=== PATIENT | male | born 1940 | race Caucasian/White ===

== ENCOUNTER 2020-04-14 12:27 | Emergency (ER) | payer OTHER, MEDICARE, SELFPAY ==
[2020-04-14 12:28] VITALS: BP 190/81; PULSE 59; RESP 20; TEMP 36.9; O2SAT 96; BMI 24.9
--- NOTE | 2020-04-14 12:42 | XR_ITS ---
WS: [id number] PORTABLE CHEST HISTORY: weakness COMPARISON: 02/22/2018 Status post CABG. Volume loss bilaterally with increased interstitial thickening which has progressed since 02/22/2018. Slight elevation LEFT hemidiaphragm is stable. Blunting of the RIGHT costophrenic angle. Cardiac size: Normal. Mediastinum/Aorta: Mild atherosclerosis aorta. No osseous abnormality seen. XR/XR chest 1V portable [id number] IMPRESSION: 1. Interstitial thickening appears chronic and related to pulmonary fibrosis. 2. Small RIGHT pleural effusion versus pleural thickening.
--- NOTE | 2020-04-14 13:08 | W.ED.RECABL ---
HPI - Recheck/Abnormal Lab/Rx General: Chief Complaint: Recheck/Abnormal Lab/Rx Stated Complaint: abnormal labs/sent by dr contreras Time Seen by Provider: 04/14/20 12:35 Source: patient Mode of arrival: ambulatory Limitations: no limitations History of Present Illness: HPI narrative: Mr. Pérez is a nice 79-year-old male who comes in complaining of abnormal labs. He states he was sent by the [facility] to be checked out for labs that were drawn last week and found to be abnormal. Patient denies any change in his overall health status although he states he is not felt wonderful for a time but denies any specific focal new complaints today. Patient states he is had some leg swelling and he has been told he has some abnormal liver enzymes but otherwise he is unaware of any other ongoing medical problems. He states he is in the process of transferring to Dr. Contreras's office from the [facility]. Review of Systems Const: Denies: fever(s), chills, body aches, fatigue, malaise or diaphoresis Eyes: Denies: change in vision, blurry vision, blind spots or photophobia ENMT: Denies: throat pain, odynophagia, hoarseness, swelling of lips/tongue, ear or mastoid pain, ear discharge, change in hearing or nasal discharge Card: Denies: chest pain, palpitations, irregular heart rhythm, edema, lightheadedness, syncope, pre-syncope, dyspnea on exertion or orthopnea Resp: Denies: dyspnea, productive cough, non-productive cough, wheezing, hemoptysis or chest congestion GI: Denies: abdominal pain, nausea, vomiting, hematemesis, coffee ground emesis, heartburn, diarrhea, constipation, GI cramping, hematochezia or melena : Denies: flank pain, dysuria, urinary frequency, urinary urgency or hematuria Musc: Reports: extremity swelling; Denies: neck pain, back pain, extremity pain, joint pain, joint swelling, joint redness, joint warmth or joint stiffness Skin/Breast: Denies: rash, pruritus, erythema, skin tenderness or jaundice Neuro: Denies: headache(s), numbness in extremities, weakness in extremities, sensory changes, lack of coordination, difficulty walking, dizziness, vertigo, confusion or Slurred speech present Francois/Lymph: Denies: easy bruising, easy bleeding, petechiae, purpura or enlarged lymph nodes All/Imm: Denies: urticaria, throat swelling, tongue swelling, facial swelling or acute wheezing PFSH ED PFSH: Medical History CAD (coronary atherosclerotic disease) Diabetes Hypertension Surgical History H/O cardiac catheterization H/O heart artery stent Hx of CABG Social History Smoking and tobacco status: never smoked Physical Exam Const: COMMON NORMALS: no acute distress, patient oriented x3, no limitations, healthy appearing and well nourished GENERAL APPEARANCE: cooperative, well kempt and well developed HENMT: COMMON NORMALS: normocephalic, atraumatic, external ears normal, EAC's normal and Normal external nose present HEAD & SCALP: normal to inspection, normocephalic and atraumatic FACE & SINUS: normal facial exam and face symmetric NOSE: Normal external nose present and Normal nares present EXTERNAL EAR: Yes external ears normal EXTERNAL AUDITORY CANAL: EAC's normal MOUTH: Normal oral and palatal mucosa present, lip normal and tongue normal Eye: COMMON NORMALS: Equal, round and reactive pupils present and conjunctivae normal GENERAL EYE: appearance normal, both eyes and all related structures ALIGNMENT: Yes alignment normal PERIORBITAL: periorbital findings normal EYELID: eyelids normal CONJUNCTIVA: Yes conjunctivae normal SCLERA: sclerae normal PUPIL: Yes Equal, round and reactive pupils present Neck/C-Spine: COMMON NORMALS: full ROM, no lymphadenopathy, supple, no meningeal signs and no JVD GENERAL: Yes normal visual inspection and Yes trachea midline Chest: COMMONS NORMALS: normal inspection of the chest and normal palpation of entire chest wall Resp: COMMON NORMALS: normal respiratory effort, No retractions and No use of accessory muscles EFFORT & INSPECTION: Yes able to speak in complete sentences and Yes symmetric chest movement AUSCULTATION: no crackles, no rales, no rhonchi and no wheezes Cardio: COMMON NORMALS: no JVD, regular rate, regular rhythm, S1 normal heart sound present and S2 normal heart sound present RATE: regular rate RHYTHM: regular rhythm HEART SOUNDS: S1 normal heart sound present, S2 normal heart sound present, no click, no gallops, no murmurs, no rubs and abnormal split S2 GI: COMMON NORMALS: Soft to palpation and No hepatosplenomegaly present PALPATION: Yes Soft to palpation, No Tenderness to palpation present (GI), No Guarding due to palpation present (GI), No Rigid due to palpation, Yes No hepatosplenomegaly present, No Hernia present, No Palpable mass present and No Pulsatile mass present : COMMON NORMALS: Yes no CVA tenderness BLADDER/KIDNEY EXAM: Yes no CVA tenderness Back/Pelvis: COMMON NORMALS: no CVA tenderness, thoracic and lumbar spine normal to inspection, no thoracic nor lumbar tenderness and thoraco-lumbar ROM normal Extremity: COMMON NORMALS: normal to inspection, full ROM, capillary refill normal, no joint enlargement and no calf tenderness NARRATIVE EXTREMITY EXAM: Bilateral mild leg edema Neuro: COMMON NORMALS: patient oriented x3, CN's II-XII intact bilaterally, moves all extremities, no focal motor deficits and no sensory deficits noted MENINGEAL SIGNS: Yes no meningeal signs SPEECH: speech normal Psych: COMMON NORMALS: mental status grossly normal, Normal thought process present, cooperative, normal affect, speech normal and activity/motor behavior normal APPEARANCE: Yes well kempt SPEECH: Yes normal speech THOUGHT PROCESS: Normal thought process present Skin: COMMON NORMALS: no rashes or lesions noted, turgor normal, no jaundice, no petechiae and no mottling GENERAL SKIN EXAM: no rashes or lesions noted and turgor normal Course Vital Signs: Vital signs: Vital Signs Temperature 98.5 F 04/14/20 12:28 Pulse Rate 57 L 04/14/20 14:40 Respiratory Rate 22 H 04/14/20 14:40 Blood Pressure 162/69 04/14/20 14:40 Pulse Oximetry 99 04/14/20 14:40 MDM - Recheck/Abnormal Lab/Rx MDM Narrative: Medical decision making narrative: Ricky is a very nice 79-year-old male who comes in with a complaint of elevated liver enzymes. [facility] with [facility] that the patient was referred here for elevated liver enzymes. The patient has an appointment set up with Dr. Contreras on for this. The only thing I see of mild concern today is the swelling of his legs. It appears as though he has some early congestive heart failure and worsening renal insufficiency. The patient denies any chest pain or shortness of breath. I will give him a dose of Lasix here and a dose of Lasix to take at home tomorrow. I did review the case with Dr. Contreras who is happy to see the patient on for recheck of all of these issues. The patient understands he will need further work-up and evaluation and will follow-up for this but if there is any problems he knows he can return here for recheck. The patient's cardiac enzymes are slightly elevated but I believe this is secondary to renal insufficiency and heart failure. He adamantly denies any chest pain and does not want to wait for a second troponin test. He seems frustrated that he is bouncing around amongst somebody providers and at this time she is adamant that he wants to follow-up with Dr. Contreras. Lab Data: Attestation: I reviewed the patient's lab results. Labs: Lab Results 04/14/20 04/14/20 04/14/20 Range/Units 13:13 13:13 13:13 WBC 13.1 H (4.0-10.0) 10^3/ uL RBC 3.99 L (4.1-5.3) 10^6/u L Hgb 12.2 (11.7-16.6) g/dL Hct 37.9 L (42.0-52.0) % MCV 95.0 H (80-94) fL MCH 30.6 (28.0-34.0) pg MCHC 32.2 (30.0-36.0) g/dL RDW 13.2 (12.1-15.1) % Plt Count 213 (130-400) 10^3/c mm MPV 11.3 H (7.4-10.4) fL Neut % (Auto) 62.6 % Lymph % (Auto) 11.1 % [place] % (Auto) 11.0 % Eos % (Auto) 13.9 % Baso % (Auto) 0.9 % Neut # (Auto) 8.2 H (1.8-7.7) 10^3/u L Lymph # (Auto) 1.5 (0.8-4.8) 10^3/u L [place] # (Auto) 1.4 H (0.2-0.9) 10^3/u L Eos # (Auto) 1.8 H (0.0-0.8) 10^3/u L Baso # (Auto) 0.1 (0.0-0.1) 10^3/u L Nucleated RBC % (a uto) 0 % Nucleated RBCs # 0.0 /100WBC PT 13.40 H (10.5-13.3) SECO NDS INR 0.99 (0.8-1.2) APTT 33.2 (23.9-36.7) SECO NDS Sodium 143 (136-145) mmol/L Potassium 4.2 (3.5-5.1) mmol/L Chloride 101 (98-107) mmol/L Carbon Dioxide 29 (22-29) mmol/L Anion Gap 17.2 (5-19) BUN 21 (8-23) mg/dL Creatinine 1.7 H (0.7-1.2) mg/dL Glucose 145 H (65-115) mg/dL Calculated Osmolal ity 295 (285-295) mOsm/k g Calcium 9.3 (8.5-10.5) mg/dL Magnesium 2.0 (1.7-2.3) mg/dL Total Bilirubin 0.6 (0.15-1.2) mg/dL AST 63 H (0-40) U/L ALT 81 H (0-41) U/L Alkaline Phosphata se 264 H (40-130) IU/L Ammonia (16-60) umol/L Creatine Kinase 69 (39-308) U/L Troponin T Baselin e (0-15) ng/L NT-Pro-B Natriuret Pep 1952 H (0-450) pg/mL Total Protein 6.3 L (6.6-8.7) g/dL Albumin 3.4 L (3.5-5.2) g/dL Globulin 2.9 (1.3-4.6) g/dL Lipase 16 (13-60) U/L TSH 6.66 H (0.27-4.20) uIU/ mL Urine Color (Yellow) Urine Appearance (CLEAR) Urine pH (5-7) Ur Specific Gravit y (1.005-1.030) Urine Protein (Negative) Urine Glucose (UA) (Normal) Urine Ketones (Negative) Urine Blood (Negative) Urine Nitrate (Negative) Urine Bilirubin (NEGATIVE) Urine Urobilinogen (Negative) mg/dL Ur Leukocyte Karine ase (Negative) Urine RBC (0-2) /hpf Urine WBC (0-5) /hpf Ur Squamous Epith Cells (0-5) Urine Bacteria (NONE) 04/14/20 04/14/20 04/14/20 Range/Units 13:13 13:13 13:25 WBC (4.0-10.0) 10^3/ uL RBC (4.1-5.3) 10^6/u L Hgb (11.7-16.6) g/dL Hct (42.0-52.0) % MCV (80-94) fL MCH (28.0-34.0) pg MCHC (30.0-36.0) g/dL RDW (12.1-15.1) % Plt Count (130-400) 10^3/c mm MPV (7.4-10.4) fL Neut % (Auto) % Lymph % (Auto) % [place] % (Auto) % Eos % (Auto) % Baso % (Auto) % Neut # (Auto) (1.8-7.7) 10^3/u L Lymph # (Auto) (0.8-4.8) 10^3/u L [place] # (Auto) (0.2-0.9) 10^3/u L Eos # (Auto) (0.0-0.8) 10^3/u L Baso # (Auto) (0.0-0.1) 10^3/u L Nucleated RBC % (a uto) % Nucleated RBCs # /100WBC PT (10.5-13.3) SECO NDS INR (0.8-1.2) APTT (23.9-36.7) SECO NDS Sodium (136-145) mmol/L Potassium (3.5-5.1) mmol/L Chloride (98-107) mmol/L Carbon Dioxide (22-29) mmol/L Anion Gap (5-19) BUN (8-23) mg/dL Creatinine (0.7-1.2) mg/dL Glucose (65-115) mg/dL Calculated Osmolal ity (285-295) mOsm/k g Calcium (8.5-10.5) mg/dL Magnesium (1.7-2.3) mg/dL Total Bilirubin (0.15-1.2) mg/dL AST (0-40) U/L ALT (0-41) U/L Alkaline Phosphata se (40-130) IU/L Ammonia 24 (16-60) umol/L Creatine Kinase (39-308) U/L Troponin T Baselin e 27 H (0-15) ng/L NT-Pro-B Natriuret Pep (0-450) pg/mL Total Protein (6.6-8.7) g/dL Albumin (3.5-5.2) g/dL Globulin (1.3-4.6) g/dL Lipase (13-60) U/L TSH (0.27-4.20) uIU/ mL Urine Color Yellow (Yellow) Urine Appearance Clear (CLEAR) Urine pH 5 (5-7) Ur Specific Gravit y 1.015 (1.005-1.030) Urine Protein Trace (Negative) Urine Glucose (UA) Norm (Normal) Urine Ketones Negative (Negative) Urine Blood Neg (Negative) Urine Nitrate Negative (Negative) Urine Bilirubin Neg (NEGATIVE) Urine Urobilinogen Norm (Negative) mg/dL Ur Leukocyte Karine ase Negative (Negative) Urine RBC None (0-2) /hpf Urine WBC None (0-5) /hpf Ur Squamous Epith Cells None (0-5) Urine Bacteria Trace (NONE) Imaging Data^: CXR: Radiologist's impression: [address] [address] XRay Report Signed Patient: Ricky Pérez Unit #: [id number] : 1940 Age/Sex: 79 / M ADM Date: 04/14/20 Loc: ER Room/Bed: Attending Dr: Ordering Provider/Ordering MD: Marnie Garvey DO Date of Service: 04/14/20 Procedure(s): XR chest 1V portable [id number] Accession Number(s): [id number] Report Number: [id number] WS: [id number] PORTABLE CHEST HISTORY: weakness COMPARISON: 02/22/2018 Status post CABG. Volume loss bilaterally with increased interstitial thickening which has progressed since 02/22/2018. Slight elevation LEFT hemidiaphragm is stable. Blunting of the RIGHT costophrenic angle. Cardiac size: Normal. Mediastinum/Aorta: Mild atherosclerosis aorta. No osseous abnormality seen. XR/XR chest 1V portable [id number] IMPRESSION: 1. Interstitial thickening appears chronic and related to pulmonary fibrosis. 2. Small RIGHT pleural effusion versus pleural thickening. Dictated By: Sarah Kohler DO Signed By: Sarah Kohler DO Signed Date/Time: 04/14/20 1319 DD/ 1305 EKG Data^: EKG 1: Attestation: I personally reviewed and interpreted this EKG as follows: EKG interpretation date: 04/14/20 EKG interpretation time: 13:03 Interpretation: Sinus bradycardia 57 beats a minute, normal intervals, left axis deviation, incomplete right bundle branch block, no acute ST or T wave findings. Discharge Plan Discharge Patient Disposition: Home, Self-Care Clinical Impression: Elevated liver enzymes Congestive heart failure Qualifiers: Heart failure type: unspecified Heart failure chronicity: acute Qualified Code(s): I50.9 - Heart failure, unspecified Condition: Stable Prescriptions: New Lasix 40 mg tablet 40 mg PO QAM Qty: 1 RF: 0 Discharge Orders: Discharge Order (Routine); Ordered 04/14/20 Ordered By: Marnie Garvey Referrals: Roberth Contreras MD [Physician] - 04/17/20 9:30 am (Follow-up as scheduled.) Discharge Diet: Low Salt Discharge Activity: Increase activity as tolerated Patient Instructions: Congestive Heart Failure, Heart Failure (ED), Leg Edema (ED) Activity Restrictions/Additional Instructions: Please return to the ER immediately for any of the signs or symptoms listed on your discharge instruction sheets, worsening/changing of your symptoms, you are not getting better as quickly as expected, or for ANY other cause or concerns. You have declined any further evaluation and care here for your heart. Of course any heart problem can be life-threatening so if you change your mind, you develop chest pain, develop shortness of breath, or you have any other concerns please return to the ER immediately for recheck. Be certain to make your follow-up appointments with Dr. Contreras this week and with the [facility] as [facility]. Discharge Date/Time: 04/14/20 14:41 Coding Level of Care Code ED Shingle Sawyer for Chg Fwd Exam Comprehensive
[2020-04-14 13:20] LABS: Basophils # 0.1 10^3/uL (0.0-0.1); Basophils % 0.9 %; Eosinophils # 1.8 10^3/uL (0.0-0.8); Eosinophils % 13.9 %; Hematocrit 37.9 % (42.0-52.0); Hemoglobin 12.2 g/dL (11.7-16.6); Lymphocytes # 1.5 10^3/uL (0.8-4.8); Lymphocytes % 11.1 %; Mean Corpuscular HGB Conc 32.2 g/dL (30.0-36.0); Mean Corpuscular Hemoglobin 30.6 pg (28.0-34.0); Mean Platelet Volume 11.3 fL (7.4-10.4); Monocytes # 1.4 10^3/uL (0.2-0.9); Neutrophils # 8.2 10^3/uL (1.8-7.7); Neutrophils % 62.6 %; Nucleated Red Blood Cells % 0 %; Platelet Count 213 10^3/cmm (130-400); Red Blood Count 3.99 10^6/uL (4.1-5.3); Red Cell Distribution Width 13.2 % (12.1-15.1); White Blood Count 13.1 10^3/uL (4.0-10.0)
[2020-04-14 13:33] LABS: INR 0.99 (0.8-1.2)
[2020-04-14 13:34] LABS: Partial Thromboplastin Time 33.2 SECONDS (23.9-36.7)
[2020-04-14 13:43] LABS: Troponin(5th) Baseline 27 ng/L (0-15)
[2020-04-14 13:45] LABS: Ammonia 24 umol/L (16-60)
[2020-04-14 13:48] LABS: Alanine Aminotransferase 81 U/L (0-41); Albumin Level 3.4 g/dL (3.5-5.2); Alkaline Phosphatase 264 IU/L (40-130); Anion Gap 17.2 (5-19); Aspartate Amino Transferase 63 U/L (0-40); Blood Urea Nitrogen 21 mg/dL (8-23); Calcium 9.3 mg/dL (8.5-10.5); Carbon Dioxide 29 mmol/L (22-29); Chloride 101 mmol/L (98-107); Creatine Phosphokinase 69 U/L (39-308); Globulin 2.9 g/dL (1.3-4.6); Glucose 145 mg/dL (65-115); Lipase 16 U/L (13-60); NT Pro B Type Natriuretic Pept 1952 pg/mL (0-450); Osmolality Calculated 295 mOsm/kg (285-295); Potassium 4.2 mmol/L (3.5-5.1); Sodium 143 mmol/L (136-145); Thyroid Stimulating Hormone 6.66 uIU/mL (0.27-4.20); Total Bilirubin 0.6 mg/dL (0.15-1.2); Total Protein 6.3 g/dL (6.6-8.7)
--- NOTE | 2020-04-14 14:07 | DCPLANNER ---
biofuels product manager was asked to schedule a follow up appointment for patient with Dr. Contreras. biofuels product manager called the office of , spoke with Consuelo, a follow up appointment was scheduled for patient for , April 17, 2020 at 9:[address] Contreras. biofuels product manager called [facility], gave her the appointment information for her to put in for the [facility] team. biofuels product manager was told that patient will need to call the [facility] about seeing [facility] Contreras. biofuels product manager informed patient of this, and told patient that he would need to call the [facility] about his appointment scheduled for this week.
[2020-04-14 14:13] LABS: Bilirubin Urine Neg (NEGATIVE); Blood Urine Neg (Negative); Glucose Urine UA Norm (Normal); Ketones Urine Negative (Negative); Leukocyte Esterase Urine Negative (Negative); Nitrate Urine Negative (Negative); Protein Urine Trace (Negative); Specific Gravity, Urine 1.015 (1.005-1.030); Urine Appearance Clear (CLEAR); Urine Color Yellow (Yellow); Urobilinogen Urine Norm (Negative); pH Urine 5 (5-7)
[2020-04-14 14:24] LABS: Add Urine Culture? No; Bacteria Urine TRACE
[2020-04-14] MEDS: FUROsemide 10 mg/mL SDV 4mL 40 MG IVP (14:32)
[2020-04-14 14:40] VITALS: BP 162/69; PULSE 57; RESP 22; O2SAT 99
--- NOTE | 2020-04-14 18:43 | ECG_ITS ---
Measurements Intervals [place] Rate: 57 P: 39 MT: 142 QRS: -17 QRSD: 89 T: 30 QT: 429 QTc: 419 SINUS BRADYCARDIA WITH SINUS ARRHYTHMIA POSSIBLE RIGHT VENTRICULAR CONDUCTION DELAY [RSR (QR) IN V1/V2] MINIMAL ST DEPRESSION [0.025+ mV ST DEPRESSION] No previous ECG available for comparison Electronically Signed On 04-14-2020 19:31:37 CDT by Junior Rodriguez M.D. [id number]
--- NOTE | 2020-04-24 15:26 | DCPLANNER ---
Patient did attend appointment scheduled for 04.17.[address] Contreras.
== END 2020-04-14 14:41 | disposition home or self-care (01) ==
PROVIDERS: Emergency Provider Emergency Medicine
DX: R74.8 Abnormal levels of other serum enzymes (principal); I11.0 Hypertensive heart disease with heart failure; I50.9 Heart failure, unspecified; I25.10 Atherosclerotic heart disease of native coronary artery without angina pectoris; E11.9 Type 2 diabetes mellitus without complications; Z95.1 Presence of aortocoronary bypass graft
CPT/HCPCS: 12345; 36415; 71045; 80053; 81001; 82140; 82550; 83690; 83735; 83880; 84443; 84484; 85025; 85610; 85730; 93005; 96374; 99283; 99284; J1940

== ENCOUNTER → 2020-05-01 11:42 | Outpatient (BNVA) | payer MEDICARE, OTHER, SELFPAY | PROVIDERS: Visit Provider Internal Medicine | DX: E87.6 Hypokalemia (principal); I50.9 Heart failure, unspecified; I25.10 Atherosclerotic heart disease of native coronary artery without angina pectoris; I10 Essential (primary) hypertension; E11.9 Type 2 diabetes mellitus without complications | CPT/HCPCS: 80048 ==

== ENCOUNTER 2020-05-14 12:38 | Inpatient (IN) | payer OTHER, MEDICARE, SELFPAY ==
[2020-05-14] VITALS (7 sets, daily range): BP systolic 111–123; BP diastolic 46–68; PULSE 65–74; RESP 15–18; TEMP 36.3–36.6; O2SAT 94–98; BMI 24.3
--- NOTE | 2020-05-14 12:43 | ECG_ITS ---
[facility] Test Date: 2020-05-14 Pat Name: Ricky Pérez Department: Room: Gender: Male Wholesale Buyer: : 1940 Requested By: Lazaro Nicholson Order Number: [id number] Maddison MD: Nidhi Blake M.D. Measurements Intervals [place] Rate: 72 P: 27 WV: 133 QRS: -11 QRSD: 88 T: 33 QT: 392 QTc: 430 Interpretive Statements SINUS RHYTHM POSSIBLE RIGHT VENTRICULAR CONDUCTION DELAY [RSR (QR) IN V1/V2] Compared to ECG 04/14/2020 13:03:28 Sinus bradycardia no longer present Sinus arrhythmia no longer present ST (T wave) deviation no longer present Electronically Signed On 05-15-2020 17:08:45 CDT by Nidhi Blake M.D. [email or web address]/store/[id number]
--- NOTE | 2020-05-14 12:51 | ED_ITS ---
HPI - General Adult General: Chief complaint: General Medical Stated complaint: flluid build up Time Seen by Provider: 05/14/20 12:51 History of Present Illness: HPI narrative: 79-year-old male [facility] ED PFSH: Medical History (Updated 05/12/20 @ 14:33 by Roberth Contreras MD) CAD (coronary atherosclerotic disease) Diabetes Hypertension Surgical History H/O cardiac catheterization H/O heart artery stent Hx of CABG Social History Smoking and tobacco status: former smoker Alcohol intake: former History of recent travel: No Course Vital Signs: Vital signs: Vital Signs Temperature 97.4 F L 05/14/20 12:46 Pulse Rate 74 05/14/20 12:46 Respiratory Rate 18 05/14/20 12:46 Blood Pressure 123/60 05/14/20 12:46 Pulse Oximetry 95 05/14/20 12:46 Discharge Plan Discharge Prescriptions: No Action aspirin 81 mg tablet,delayed release (DR/EC) 81 mg PO DAILY RF: 0 levothyroxine 75 mcg capsule 75 mcg PO DAILY RF: 0 atorvastatin 80 mg tablet 80 mg PO DAILY RF: 0 insulin aspart U-100 [Novolog U-100 Insulin aspart] 100 unit/mL solution 75 unit SUBCUT DAILY RF: 0 metoprolol tartrate 25 mg tablet 37.5 mg PO BID RF: 0 nitroglycerin [Nitrostat] 0.4 mg tablet, sublingual 0.4 mg SUBLINGUAL Q5M PRNRF: 0 montelukast 10 mg tablet 10 mg PO DAILY RF: 0 hydroxyzine HCl 50 mg tablet 50 mg PO TID RF: 0 furosemide 20 mg tablet 60 mg PO BID 30 Days Qty: 180 RF: 8 Coding Level of Care Code ED Airplane Patroller for Justo Meyer
[2020-05-14 13:23] LABS: Basophils # 0.1 10^3/uL (0.0-0.1); Basophils % 0.6 %; Hematocrit 39.3 % (42.0-52.0); Hemoglobin 12.5 g/dL (11.7-16.6); Lymphocytes # 3.6 10^3/uL (0.8-4.8); Lymphocytes % 19.5 %; Mean Corpuscular HGB Conc 31.8 g/dL (30.0-36.0); Mean Corpuscular Hemoglobin 31.3 pg (28.0-34.0); Mean Corpuscular Volume 98.5 fL (80-94); Monocytes # 3.8 10^3/uL (0.2-0.9); Monocytes % 20.5 %; Neutrophils # 8.79 10^3/uL (1.8-7.7); Neutrophils % 47.4 %; Nucleated Red Blood Cells % 0 %; Platelet Count 274 10^3/cmm (130-400); Red Blood Count 3.99 10^6/uL (4.1-5.3); Red Cell Distribution Width 15.4 % (12.1-15.1); White Blood Count 18.5 10^3/uL (4.0-10.0)
--- NOTE | 2020-05-14 13:26 | XRR_ITS ---
PROCEDURE INFORMATION: Exam: XR Chest, 1 View Exam date and time: 05/14/2020 2:01 PM Age: 79 years old Clinical indication: Shortness of breath; Additional info: SOB TECHNIQUE: Imaging protocol: XR of the chest Views: 1 view. COMPARISON: CR XR chest 1V portable [id number] 04/14/2020 1:01 PM FINDINGS: Lungs: Atelectasis is seen in the left lower lobe Pleural space: Elevation of the left hemidiaphragm. No pleural effusion. No pneumothorax. Heart/Mediastinum: Unremarkable. No cardiomegaly. Bones/joints: Metallic sternotomy wires are in place. XR/XR chest 1V portable [id number] IMPRESSION: No acute findings. Left lower lobe atelectasis Elevation left hemidiaphragm Status post sternotomy
--- NOTE | 2020-05-14 13:36 | W.ED.GENADLT ---
HPI - General Adult General: Chief complaint: General Medical Stated complaint: flluid build up Time Seen by Provider: 05/14/20 12:51 Source: patient Mode of arrival: ambulatory Limitations: no limitations History of Present Illness: HPI narrative: 79-year-old male who has a history of congestive heart failure states that he has been having generalized weakness along with shortness of breath over the last 2 months. Patient states that he gets short of breath with ambulating. He denies any pain. Onset (ago): week(s) Associated symptoms: Reports dyspnea; Deny chest pain, nausea, rash or vomiting Review of Systems Const: Denies: fever(s), chills, body aches or change in appetite Eyes: Denies: blurry vision or eye discomfort ENMT: Denies: throat pain or dental pain Card: Denies: chest pain Resp: Reports: dyspnea GI: Denies: abdominal pain, nausea, vomiting or diarrhea : Denies: dysuria Musc: Denies: neck pain or back pain Skin/Breast: Denies: rash Neuro: Reports: weakness in extremities Psych: Denies: depression Francois/Lymph: Denies: easy bruising All/Imm: Denies: urticaria PFSH ED PFSH: Medical History (Updated 05/14/20 @ 14:54 by Rodolfo Whittington MD) CAD (coronary atherosclerotic disease) Diabetes Hypertension Surgical History H/O cardiac catheterization H/O heart artery stent Hx of CABG Social History Smoking and tobacco status: former smoker Alcohol intake: former History of recent travel: No Physical Exam Const: COMMON NORMALS: no acute distress, patient oriented x3 and healthy appearing HENMT: COMMON NORMALS: normocephalic and atraumatic HEAD & SCALP: normocephalic and atraumatic Eye: COMMON NORMALS: Equal, round and reactive pupils present and EOMs intact bilaterally PUPIL: Yes Equal, round and reactive pupils present Neck/C-Spine: COMMON NORMALS: full ROM and supple Chest: COMMONS NORMALS: normal inspection of the chest and normal palpation of entire chest wall Resp: COMMON NORMALS: normal respiratory effort, No retractions, No use of accessory muscles and clear to auscultation bilaterally AUSCULTATION: clear to auscultation bilaterally Cardio: COMMON NORMALS: regular rate, regular rhythm and No murmurs present (Cardio) RATE: regular rate RHYTHM: regular rhythm GI: COMMON NORMALS: Normal to inspection, nondistended, normoactive bowel sounds present, Soft to palpation, non-tender and no masses PALPATION: Yes Soft to palpation Extremity: COMMON NORMALS: normal to inspection and full ROM Neuro: COMMON NORMALS: patient oriented x3, moves all extremities and no focal motor deficits Psych: COMMON NORMALS: mental status grossly normal, Normal thought process present and cooperative THOUGHT PROCESS: Normal thought process present Skin: COMMON NORMALS: no rashes or lesions noted and no wounds GENERAL SKIN EXAM: no rashes or lesions noted Course Vital Signs: Vital signs: Vital Signs Temperature 97.4 F L 05/14/20 12:46 Pulse Rate 74 05/14/20 12:46 Respiratory Rate 18 05/14/20 12:46 Blood Pressure 123/60 05/14/20 12:46 Pulse Oximetry 95 05/14/20 12:46 MDM - General Adult MDM Narrative: Medical decision making narrative: Patient presents here with acute kidney injury with an elevated creatinine today of 6.2. Patient's potassium level is normal. Patient also has a history of congestive heart failure. His PCP recently stopped his Lasix. Patient's been having weakness as well. I spoke to hospitalist and will admit. Lab Data: Labs: Lab Results 05/14/20 05/14/20 Range/Units 13:15 13:15 Sodium 139 (136-145) mmol/L Potassium 5.3 H (3.5-5.1) mmol/L Chloride 101 (98-107) mmol/L Carbon Dioxide 26 (22-29) mmol/L Anion Gap 17.3 (5-19) BUN 80 H (8-23) mg/dL Creatinine 6.3 H* (0.7-1.2) mg/dL Glucose 128 H (65-115) mg/dL Calculated Osmolal ity 290 (285-295) mOsm/k g Calcium 9.7 (8.5-10.5) mg/dL Total Bilirubin 0.4 (0.15-1.2) mg/dL AST 37 (0-40) U/L ALT 33 (0-41) U/L Alkaline Phosphata se 214 H (40-130) IU/L Troponin T Baselin e 43 H (0-15) ng/L NT-Pro-B Natriuret Pep 2598 H (0-450) pg/mL Total Protein 6.3 L (6.6-8.7) g/dL Albumin 3.5 (3.5-5.2) g/dL Globulin 2.8 (1.3-4.6) g/dL EKG Data^: EKG 1: Attestation: I personally reviewed and interpreted this EKG as follows: EKG interpretation date: 05/14/20 EKG interpretation time: 13:32 Interpretation: nsr hr [address] or t wave abnormalities qrs 88 qtc 416 Computer generated interpretation: Chest X-Ray 05/14/20 13:26 IMPRESSION: No acute findings. Left lower lobe atelectasis Elevation left hemidiaphragm Status post sternotomy Discharge Plan Discharge Patient Disposition: Admitted As Inpatient Clinical Impression: CHF (congestive heart failure), Acute kidney injury Condition: Stable Coding Level of Care Code ED Activity Coordinator for Chg Fwd Exam Comprehensive
--- NOTE | 2020-05-14 13:37 | PC.NURSE ---
EKG done at 1325 and shown to ER doctor
[2020-05-14 13:51] LABS: Troponin(5th) Baseline 43 ng/L (0-15)
[2020-05-14 13:55] LABS: Alanine Aminotransferase 33 U/L (0-41); Albumin Level 3.5 g/dL (3.5-5.2); Alkaline Phosphatase 214 IU/L (40-130); Anion Gap 17.3 (5-19); Aspartate Amino Transferase 37 U/L (0-40); Blood Urea Nitrogen 80 mg/dL (8-23); Calcium 9.7 mg/dL (8.5-10.5); Carbon Dioxide 26 mmol/L (22-29); Chloride 101 mmol/L (98-107); Globulin 2.8 g/dL (1.3-4.6); Glucose 128 mg/dL (65-115); NT Pro B Type Natriuretic Pept 2598 pg/mL (0-450); Osmolality Calculated 290 mOsm/kg (285-295); Potassium 5.3 mmol/L (3.5-5.1); Sodium 139 mmol/L (136-145); Total Bilirubin 0.4 mg/dL (0.15-1.2); Total Protein 6.3 g/dL (6.6-8.7)
--- NOTE | 2020-05-14 14:43 | ECG_ITS ---
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 Measurements Intervals [place] Rate: 70 P: 19 NM: 140 QRS: -12 QRSD: 81 T: 18 QT: 406 QTc: 441 Interpretive Statements SINUS RHYTHM WITH OCCASIONAL VENTRICULAR PREMATURE COMPLEXES POSSIBLE RIGHT VENTRICULAR CONDUCTION DELAY [RSR (QR) IN V1/V2] POSSIBLE ANTERIOR MYOCARDIAL INFARCTION , PROBABLY OLD [30 ms Q WAVE IN V3/V4, OR R < 0.2 mV IN V4] Compared to ECG 05/14/2020 13:32:30 Ventricular premature complex(es) now present Myocardial infarct finding now present Electronically Signed On 05-15-2020 17:22:51 CDT by Nidhi Blake M.D. [id number]
[2020-05-14 14:55] LABS: Slide Review Slide Review Perform
--- NOTE | 2020-05-14 15:00 | PC.NURSE ---
EKG done at 1450 and shown to ER doctor
[2020-05-14 15:10] LABS: Bilirubin Urine Neg (NEGATIVE); Blood Urine Neg (Negative); Glucose Urine UA Norm (Normal); Ketones Urine Negative (Negative); Leukocyte Esterase Urine Negative (Negative); Nitrate Urine Negative (Negative); Protein Urine Neg (Negative); Specific Gravity, Urine 1.005 (1.005-1.030); Urine Appearance Clear (CLEAR); Urine Color Straw (Yellow); Urobilinogen Urine Norm (Negative); pH Urine 5 (5-7)
--- NOTE | 2020-05-14 16:07 | CTR_ITS ---
PROCEDURE INFORMATION: Exam: CT Chest Without Contrast Exam date and time: 05/14/2020 5:06 PM Age: 79 years old Clinical indication: Abdominal pain; Acute; Chest pain; Type not specified; Additional info: Abd pain TECHNIQUE: Imaging protocol: Computed tomography of the chest without contrast. Radiation optimization: All CT scans at this facility use at least one of these dose optimization techniques: automated exposure control; mA and/or kV adjustment per patient size (includes targeted exams where dose is matched to clinical indication); or iterative reconstruction. COMPARISON: CR XR chest 1V portable [id number] 05/14/2020 2:06 PM RADIATION DOSE METRICS: Total DLP (mGy-cm): 1190.48 FINDINGS: Lungs: There is mild diffuse thickening of the interlobular septa which may represent some chronic interstitial disease. There are diffuse tiny nodular opacities in both lungs in a random distribution, mostly measuring 1-2 mm, with the largest measuring approximately 8 mm in the lingula most prominent in the left upper lobe. The significance of these findings is not certain. This could be related to old granulomatous infection, however metastatic disease is not excluded. Pleural space: Unremarkable. No pneumothorax. No pleural effusion. Heart: Sternotomy wires and mediastinal surgical clips are present, consistent with previous coronary arterial bypass grafting. Aorta: Unremarkable. No aortic aneurysm. Lymph nodes: There is marked adenopathy within the chest with subcarinal adenopathy measuring up to 35 x 50 mm, right paratracheal measuring 33 x 42 mm, prevascular lymph nodes measuring up to 16 x 22 mm, retrocrural nodes measuring up to 11 x 13 mm, and mildly enlarged bilateral axillary lymph nodes measuring up to 14 x 18 mm. These findings are worrisome for lymphoma. There are also enlarged cardiophrenic lymph nodes. Correlation with the clinical findings and history is suggested. Bones/joints: Unremarkable. No acute fracture. Soft tissues: Unremarkable. IMPRESSION: 1. Mediastinal and axillary adenopathy, worrisome for lymphoma. 2. Interstitial pulmonary disease. 3. Question of small scattered pulmonary nodules of uncertain significance. PROCEDURE INFORMATION: Exam: CT Abdomen And Pelvis Without Contrast Exam date and time: 05/14/2020 5:06 PM Age: 79 years old Clinical indication: Abdominal pain; Acute; Chest pain; Type not specified; Additional info: Abd pain TECHNIQUE: Imaging protocol: Computed tomography of the abdomen and pelvis without contrast. Radiation optimization: All CT scans at this facility use at least one of these dose optimization techniques: automated exposure control; mA and/or kV adjustment per patient size (includes targeted exams where dose is matched to clinical indication); or iterative reconstruction. COMPARISON: CR XR chest 1V portable [id number] 05/14/2020 2:06 PM RADIATION DOSE METRICS: Total DLP (mGy-cm): 1190.48 FINDINGS: Limitations: The absence of intravenous contrast lessens the sensitivity of this study for solid organ abnormalities. Liver: There is no focal abnormality within the liver. Gallbladder and bile ducts: The gallbladder is normal. Pancreas: The pancreas is normal. Spleen: The spleen is normal. Adrenals: The adrenal glands are normal. Kidneys and ureters: There is a 9 x 15 mm hypodensity in the right kidney, probably a small benign cyst. The left kidney is normal. There is no evidence of hydronephrosis. There is no evidence of renal or ureteral calcifications. Stomach and bowel: There is no evidence of colitis/diverticulitis. There is no evidence of intestinal obstruction. Appendix: Not identified Intraperitoneal space: There is no evidence of free intraperitoneal fluid. There is no evidence of free intraperitoneal fluid. Vasculature: The aorta demonstrates moderate atherosclerotic calcification. Lymph nodes: There is moderate adenopathy within the abdomen with enlarged lymph nodes in the periportal, periaortic, retrocrural and external iliac regions. The periaortic lymph nodes measure up to 17 x 25 mm on the right and 16 x 28 mm on the left. The significance of the lead thigh adenopathy is uncertain but suggests possibility of lymphoma. Bladder: Unremarkable as visualized. Reproductive: The prostate demonstrates moderate nonspecific enlargement. The seminal vesicles are normal. Bones/joints: Unremarkable. No acute fracture. Soft tissues: Unremarkable. Other findings: There is no evidence of focal fluid collections to suggest abscess formation. CT/CT chest abd pel wo con IMPRESSION: Moderate abdominal adenopathy worrisome for lymphoma. COMMENTS: Consistent with the [employer]'s Incidental Findings Committee white paper (J Am Riya Radiol 2018): Any incidental renal lesion less than 1.0 cm or classified as too small to characterize, or any incidental cystic renal lesion characterized as simple-appearing, is likely benign. No follow-up imaging is recommended for these lesions per consensus recommendations based on imaging criteria. Radiation Dose CTDIVOL = (mGy): DLP = 1190.48~1190.48 (mGy-cm)
[2020-05-14 16:13] LABS: Troponin 5 2HR 44.44 ng/L (0-15); Troponin 5 2HR Delta 1.44 ABS# (0-10)
[2020-05-14] MEDS: ondansetron 2 mg/ML SDV 2 mL 4 MG IVP (16:49)
[2020-05-14] MEDS: morphine 4 mg/mL SDV 1 mL IVP (16:50)
[2020-05-14 17:05] LABS: Thyroid Stimulating Hormone 27.35 uIU/mL (0.27-4.20)
[2020-05-14 17:07] LABS: T3 Free 1.5 PG/ML (2.0-4.4)
--- NOTE | 2020-05-14 17:11 | P.HP_ITS ---
Providers/Chief Complaint Admitting Physician: Karsten Wagner MD Chief Complaint: flluid build up History of Present Illness Ricky Pérez is a 79 year old male with past medical history of CAD status post CABG and PCI with last stent in 2006, type 1 diabetes mellitus on insulin pump, hypertension CKD with baseline creatinine around 1.7 presents to the ER today with worsening shortness of breath for last 7 to 8 months. He states his shortness of breath is worse on exertion. At present he is not able to walk even 3 steps without getting out of breath. He is not really sure about orthopnea or PND. At baseline he sleeps in a recliner with his head up because of dizziness because of some middle ear problems. The symptoms associated with increasing swelling in his lower limbs which is been getting worse for last 1 week. He states his appetite has been decreasing as well. Denies of having any nausea or vomiting. He denies of having any recent chest pain, palpitation, headache, dizziness, falls, sniffles, cough or expectoration, diarrhea, dysuria and exposure to COVID-19 patient's, fever. He does complain of decreased urine output for last 1 week. He denies of diagnosis of BPH. He states he saw Dr. Contreras 2 weeks ago for shortness of breath and he was started on Lasix which was later stopped because his kidney functions are worsening. He last took Bumex around 3 weeks ago and Lasix around a week ago. Today he presented to the ER because he has been feeling very tired, more more short of breath for last 3 days so he decided to come to the ER. His blood work in the ER showed a white count of 18,000, hemoglobin of 12.2, neutrophil left shift of 8.79, potassium of 5.3, BUN of 80, creatinine of 6.3. Review of Systems General: Reports: 10 or more systems reviewed and unremarkable except in HPI and below Const: Denies: fever(s), chills, body aches, change in appetite, malaise, night sweats, diaphoresis, change in sleep pattern, daytime sleepiness or snoring Eyes: Denies: change in vision, blurry vision, photophobia, eye discomfort or eye discharge ENMT: Denies: throat pain, enlarged tonsils, hoarseness, mouth pain, oral sores, dry mouth, tinnitus, nasal congestion or post nasal drip Card: Reports: chest pain, palpitations and edema; Denies: irregular heart rhythm, swelling of feet/ankles, lightheadedness, syncope, pre-syncope, dyspnea on exertion, orthopnea, leg pain with exertion or acrocyanosis Resp: Reports: dyspnea and non-productive cough; Denies: productive cough, wheezing, stridor, pain on inspiration, change in phlegm color, hemoptysis or chest congestion GI: Denies: abdominal pain, nausea, vomiting, hematemesis, coffee ground emesis, dysphagia, heartburn, diarrhea, constipation, bloating, GI cramping, change in bowel habits, pain on defecation, hematochezia or melena : Denies: flank pain, difficulty urinating, dysuria, urinary frequency, urinary urgency, urinary hesitancy, urinary dribbling, difficulty starting urination, change in urine stream, nocturia or hematuria Musc: Denies: neck pain, back pain, extremity pain, joint pain, joint swelling, joint redness, joint stiffness or limited range of motion Neuro: Denies: headache(s), numbness in extremities, weakness in extremities, sensory changes, lack of coordination, difficulty walking, frequent falls, dizziness, vertigo, confusion, Slurred speech present, difficulty communicating thoughts or seizure-like activity Psych: Denies: anxiety, depression, mood swings, panic attacks, hopelessness or irritability Endo: Denies: polyuria, polydipsia, tired all the time, cold intolerance, excessive sweating, flushing or heat intolerance Francois/Lymph: Denies: easy bruising or easy bleeding All/Imm: Denies: tongue swelling, facial swelling or acute wheezing Medications/Allergies Home Medications Medication Instructions Recorded Confirmed Last Taken Type aspirin 81 mg tablet,delayed 81 mg PO DAILY 04/17/20 05/14/20 Unknown History release atorvastatin 80 mg tablet 40 mg PO DAILY 04/17/20 05/14/20 Unknown History hydroxyzine HCl 50 mg tablet 50 mg PO TID 04/17/20 05/14/20 Unknown History insulin aspart U-100 100 unit/mL See Rx Instructions .ROUTE 04/17/20 05/14/20 Unknown History subcutaneous solution .COMPLEX ml levothyroxine 75 mcg capsule 75 mcg PO DAILY 04/17/20 05/14/20 Unknown History metoprolol tartrate 25 mg tablet 37.5 mg PO BID tab 04/17/20 05/14/20 Unknown History montelukast 10 mg tablet 10 mg PO DAILY 04/17/20 05/14/20 Unknown History nitroglycerin 0.4 mg sublingual 0.4 mg SUBLINGUAL Q5M PRN 04/17/20 05/14/20 Unknown History tablet furosemide 20 mg tablet 60 mg PO BID 30 Days #180 tab 05/01/20 05/14/20 Unknown Rx bumetanide 0.5 mg PO BID 05/14/20 05/14/20 Unknown History Allergies Allergy/AdvReac Type Severity Reaction Status Date / Time No Known Allergies Allergy Verified 05/14/20 15:05 PFSH Acute PFSH: Medical History (Updated 05/14/20 @ 17:17 by Karsten Wagner MD) CAD (coronary atherosclerotic disease) CHF (congestive heart failure) CKD (chronic kidney disease) Diabetes Hypertension Insulin pump in place Surgical History H/O cardiac catheterization H/O heart artery stent Hx of CABG Social History Smoking and tobacco status: former smoker Alcohol intake: former History of recent travel: No Vitals/I&O/Wt Last Vital Signs Temp 97.4 F L 05/14/20 12:46 Pulse 74 05/14/20 12:46 Resp 18 05/14/20 16:50 BP 123/60 05/14/20 12:46 Pulse Ox 98 05/14/20 16:50 Weight last 48 hrs Weight 72.575 kg Physical Exam Narrative: EXAM NARRATIVE: General: No acute distress, AO x3, pale, tired looking HEENT: PERRLA, pupils bilaterally equal and reactive Chest: Bilateral decreased air entry in the lower zones, to the middle of the lungs bilaterally equal air entry bilaterally CVS: S1-S2 regular, pansystolic murmur at the apex 2/6, no tachycardia, no gallops, no rubs Abdomen: Soft, nontender, no organomegaly, bowel sounds present Neuro: No focal deficits, no facial deformity, AO x3, power 5/5 in all limbs Data : 05/14/20 13:15 05/14/20 13:15 A&P Assessment and plan (1) CKD (chronic kidney disease): Status: Acute (2) PEOPLES (dyspnea on exertion): Status: Acute (3) Acute kidney injury: Status: Acute (4) CHF (congestive heart failure): Status: Acute (5) Hx of CABG: Status: Acute (6) Diabetes: Status: Acute (7) Insulin pump in place: Status: Acute (8) Hypertension: Status: Acute Additional A&P Information 79-year-old gentleman past medical history of CAD status post CABG and multiple stenting with history of CHF unknown type who follows up with a tub operator in [place] for history of CKD comes in today because of worsening weakness and shortness of breath. Acute on chronic kidney disease: Baseline creatinine seems to be around 1.7. Can be 2/2 to obstructive uropathy versus cardiorenal syndrome. Creatinine night of 6.3 with a BUN of 80 and a potassium of 5.3. Patient does not have any anion gap at present. Check ABG, urine lites, urine creatinine, renal ultrasound, CT abdomen pelvis to rule out obstructive uropathy. Ann catheter placed for strict input output charting. Medical reconciliation done for nephrotoxic drugs. Creatinine continues to worsen will consult nephrology. For possible cardiorenal syndrome: At present because of worsening congestive heart failure we will start him on Lasix 40 mg IV BID. Hyperkalemia: D50 with insulin 10. Calcium 9.7 Monitor potassium daily. CHF: Unknown type. Check ECHO. Request documents from his primary tub operator. Start patient on Lasix 40 mg IV twice daily. Oxygen supplementation keeping saturation 92%. History of CAD: Continue with home dose of aspirin, statins. Continue home dose of metoprolol. Patient is chest pain-free for now. It is possible that patient requires a stress test. Will request once patient is stabilized from CHF and DEMETRIUS point of view. For type 1 diabetes mellitus: Patient has an insulin pump in situ. We will continue the same. Blood sugars will be checked before meals and at bedtime. Insulin sliding scale mild protocol. Hypertension: Goal blood pressure 140/90 mmHg. Continue with home dose of metoprolol. Check iron panel, TSH, vitamin B12, free T3, free T4, procalcitonin. We will change medication as per the clinical picture and results. DNR/DNI. Patient states he would just want to be comfortable he does not want any heroic measures like chest compressions for ventilator. Renal nondialysis diet. Heparin 5000 every 12. Admit to CSU Attestations Medical Necessity Statement*: More than 2 midnights for acute on chronic kidney disease, CHF Time Spent in Patient Care: Greater than 35 minutes (>than 50% of time spent in counselling and/or direct pt care on unit) . Coding Level of Care Code Acute Finishing Tunnel Operator for [facility] Fwd Diagnoses CKD (chronic kidney disease) N18.9 PEOPLES (dyspnea on exertion) R06.00 Acute kidney injury N17.9 CHF (congestive heart failure) I50.9 Hx of CABG Z95.1 Diabetes E11.[address] Z96.41 Hypertension I10
[2020-05-14] MEDS: morphine 4 mg/mL SDV 1 mL 2 MG IVP (17:49)
[2020-05-14 18:35] LABS: LAB Peripheral Smear Sent for Review
--- NOTE | 2020-05-14 18:43 | ECG_ITS ---
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 Measurements Intervals [place] Rate: 72 P: 33 WA: 137 QRS: -5 QRSD: 84 T: 19 QT: 398 QTc: 436 Interpretive Statements SINUS RHYTHM POSSIBLE RIGHT VENTRICULAR CONDUCTION DELAY [RSR (QR) IN V1/V2] POSSIBLE ANTERIOR MYOCARDIAL INFARCTION, PROBABLY OLD Compared to ECG 05/14/2020 14:56:56 Ventricular premature complex(es) no longer present Myocardial infarct finding still present Electronically Signed On 05-15-2020 17:20:58 CDT by Nidhi Blake M.D. [email or web address].[place] [employer]/store/OM/[id number]
[2020-05-14 18:57] LABS: Vitamin B12 492 pg/mL (232-1245)
[2020-05-14 18:58] LABS: Glucose Point of Care 50 mg/dL (70-110)
[2020-05-14 19:23] LABS: Potassium, Radom Urine 9 mmol/L; Urine Creatinine 68 mg/dL (39-259)
--- NOTE | 2020-05-14 19:28 | PC.NURSE ---
pt admitted into room 103 from er at 1814.report received.oriented to room environment.instructed to notify staff if needs to get up from bed.verb understanding of instructions.pt is in sr on monitor.no sob,cp reported at present.refusing hall catheter..dr guerrero aware.pt has an insulin pump and will be managing his insulin needs.currently his blood sugar is 50.denies s/sxs hypoglycemia.orange juice given .pt requested using his own machine to recheck blood sugar...and it was 74.instructed to notify staff if he has any sxs of hypo/hyperglycemia..pt verb understanding of instructions
[2020-05-14] MEDS: heparin 5,000 unit/mL INJ 1 mL 5000 UNIT SUBCUT (19:34)
[2020-05-14] MEDS: famotidine 20 mg/2 mL INJ IVP (19:35)
[2020-05-14] MEDS: metoprolol tartrate 25 mg Tablet 37.5 MG PO (19:35)
[2020-05-14] MEDS: insulin regular-human 10 UNIT in SYRINGE 1 EACH IVP (19:36)
[2020-05-14] MEDS: dextrose 50% syringe 50 mL IVP (19:36)
--- NOTE | 2020-05-14 19:43 | PC.NURSE ---
Asked patient if he would like a bath/shower. The patient stated he would like a shower during morning shift.
[2020-05-14] MEDS: allopurinol 100 mg Tablet PO (21:06)
[2020-05-14] MEDS: hyDROXYzine 25 mg Capsule 50 MG PO (21:06)
[2020-05-14 21:33] LABS: Urine Random Chloride > 10 mmol/L; Urine Random Sodium > 10 mmol/L
[2020-05-14 21:36] LABS: Uric Acid 16.4 mg/dL (3.4-7.0)
[2020-05-14 22:05] LABS: Calcium 9.7 mg/dL (8.5-10.5); Parathyroid Hormone 79.5 pg/mL (15-65)
--- NOTE | 2020-05-14 23:25 | PC.NURSE ---
Patient does not have any complaints at this time. Call light is within reach. Will monitor.
[2020-05-15] VITALS (7 sets, daily range): BP systolic 109–132; BP diastolic 47–58; PULSE 65–75; RESP 14–19; TEMP 35.9–36.7; O2SAT 91–97
[2020-05-15 00:20] LABS: Glucose Point of Care 127 mg/dL (70-110)
--- NOTE | 2020-05-15 00:42 | PC.NURSE ---
Patient states that he takes care of his insulin pump hisself.
[2020-05-15 01:37] LABS: Procalcitonin 0.69 ng/mL (0-0.5)
[2020-05-15 01:57] LABS: Iron 89 ug/dL (59-158); Total Iron Binding Capacity 228 mcg/dl; Unsaturated Iron Binding 139 ug/dL (112-347)
--- NOTE | 2020-05-15 03:02 | PC.NURSE ---
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 Patient states he does not know the name of his cardiology office, but would be able to get their phone number from his brother tomorrow. Unable to get medical records at this time.
[2020-05-15 04:00] LABS: Hematocrit 34.3 % (42.0-52.0); Hemoglobin 10.8 g/dL (11.7-16.6); Mean Corpuscular HGB Conc 31.5 g/dL (30.0-36.0); Mean Corpuscular Hemoglobin 31.4 pg (28.0-34.0); Mean Corpuscular Volume 99.7 fL (80-94); Mean Platelet Volume 11.6 fL (7.4-10.4); Nucleated Red Blood Cells % 0 %; Platelet Count 221 10^3/cmm (130-400); Red Blood Count 3.44 10^6/uL (4.1-5.3); Red Cell Distribution Width 15.6 % (12.1-15.1)
[2020-05-15 04:20] LABS: INR 1.02 (0.8-1.2)
[2020-05-15 04:21] LABS: Estmated Average Glucose 105; Hemoglobin A1C 5.3 % (4.0-6.0)
[2020-05-15 04:37] LABS: Magnesium 2.7 mg/dL (1.7-2.3)
[2020-05-15 04:51] LABS: Chol HDL Ratio 3.88 mg/dL (1.0-5.00); Cholesterol 97 mg/dL (0-200); HDL Cholesterol 25 mg/dL (60-100); LDL Cholesterol Calculated 46 mg/dL (50-129); Triglycerides 128 mg/dL (0-150); VLDL Cholestrol Calculation 26 mg/dL (0-30)
[2020-05-15 04:52] LABS: Alanine Aminotransferase 26 U/L (0-41); Albumin Level 3.2 g/dL (3.5-5.2); Alkaline Phosphatase 179 IU/L (40-130); Aspartate Amino Transferase 30 U/L (0-40); Calcium 9.4 mg/dL (8.5-10.5); Carbon Dioxide 24 mmol/L (22-29); Chloride 103 mmol/L (98-107); Globulin 1.9 g/dL (1.3-4.6); Glucose 57 mg/dL (65-115); Osmolality Calculated 288 mOsm/kg (285-295); Sodium 140 mmol/L (136-145); Total Bilirubin 0.4 mg/dL (0.15-1.2); Total Protein 5.1 g/dL (6.6-8.7)
[2020-05-15 04:55] LABS: Blood Urea Nitrogen 85 mg/dL (8-23)
--- NOTE | 2020-05-15 04:58 | PC.NURSE ---
Patient has had uneventful night. Will monitor.
--- NOTE | 2020-05-15 05:00 | USCV_ITS ---
Ricky Pérez Age: 79 Gender: M : 1940 Exam Date: 05/15/2020 09:45 Ordering Phys: Karsten Wagner MD Technologist: Jerome Gutierrez [place] [facility] [place]: CP BP: 109 / 53 HR: 73 Rhythm: Sinus Technical Quality: Fair MEASUREMENTS (Male / Female) Normal Values 2D ECHO LV Diastolic Diameter PLAX 2.9 cm 4.2 - 5.9 / 3.9 - 5.3 cm LV Systolic Diameter PLAX 1.9 cm IVS Diastolic Thickness 0.7 cm 0.6 - 1.0 / 0.6 - 0.9 cm IVS Systolic Thickness 1.3 cm LVPW Diastolic Thickness 0.9 cm 0.6 - 1.0 / 0.6 - 0.9 cm LVPW Systolic Thickness 1.3 cm LVOT Diameter 2.1 cm LV Ejection Fraction 2D Teich 62.8 % LV Ejection Fraction MOD 2C 75.6 % LV Ejection Fraction 2C AL 76.3 % LA Diameter 3.3 cm LA Width 3.2 cm LA Height 4.1 cm RA Width 2.9 cm RA Height 3.9 cm Aorta at Sinotubular Diameter 2.7 cm M-MODE LV Diastolic Diameter MM 5.4 cm 4.2 - 5.9 / 3.9 - 5.3 cm LV Systolic Diameter MM 3.0 cm LV Ejection Fraction MM Teich 75.3 % IVS Diastolic Thickness MM 0.9 cm 0.6 - 1.0 / 0.6 - 0.9 cm IVS Systolic Thickness MM 1.6 cm LVPW Diastolic Thickness MM 1.3 cm 0.6 - 1.0 / 0.6 - 0.9 cm LVPW Systolic Thickness MM 1.5 cm RV Diastolic Diameter MM 1.5 cm Aortic Annulus Diameter 3.5 cm LA Ao Ratio MM 1.0 MV E Point Septal Separation 0.5 cm DOPPLER AV Peak Velocity 129.0 cm/s LVOT Peak Velocity 99.0 cm/s AV Area Cont Eq vti 2.7 cm squared AV Area Cont Eq pk 2.6 cm squared MV Area PHT 5.0 cm squared Mitral E to A Ratio 1.0 MV E' Velocity 7.0 cm/s Mitral E to MV E' Ratio 13.1 Mitral E to LV E' Lateral Ratio 11.7 Mitral E to LV E' Septal Ratio 15.2 TR Peak Velocity 142.0 cm/s TR Peak Gradient 8.1 mmHg TV Peak E Velocity 85.0 cm/s Right Atrial Pressure 3.0 mmHg Pulmonary Artery Systolic Pressu 11.1 mmHg FINDINGS Left Ventricle Normal left ventricular cavity size. Normal left ventricular systolic function. No regional wall motion abnormalities. Left ventricular ejection fraction is estimated at 62 %. Grade I/IV diastolic dysfunction (abnormal relaxation filling pattern), normal to mildly elevated filling pressures. Right Ventricle The right ventricle is normal in size and function. Right Atrium The right atrium is normal in size. Left Atrium The left atrium is normal in size. Mitral Valve Structurally normal mitral valve without significant stenosis or prolapse. There is no mitral regurgitation. Aortic Valve Aortic valve sclerosis without stenosis or regurgitation. Tricuspid Valve Structurally normal tricuspid valve without significant stenosis or regurgitation. Pulmonary artery systolic pressure is normal. Pulmonic Valve Structurally normal pulmonic valve without significant stenosis. There is no pulmonic regurgitation. Pericardium Normal pericardium without effusion. Aorta Normal ascending aorta dimension. CONCLUSIONS 1-Normal left ventricular cavity size. Normal left ventricular systolic function. No regional wall motion abnormalities. Left ventricular ejection fraction is estimated at 62 %. Grade I/IV diastolic dysfunction (abnormal relaxation filling pattern), normal to mildly elevated filling pressures. 2-Aortic valve sclerosis without stenosis or regurgitation. 3-No significant valve abnormalities. 4-There is no pericardial effusion. 5-Right atrial pressure is around 5 mm of mercury. 6-There are no prior echocardiogram studies to compare. Junior Rodriguez MD (Electronically Signed) Final Date: 15 May 2020 18:35 S
--- NOTE | 2020-05-15 05:00 | US_ITS ---
WS: [id number] RENAL ULTRASOUND HISTORY: worsening renal function COMPARISON: None available. TECHNIQUE: 2-D and color Doppler imaging of the kidney submitted. Right kidney: 12.2 cm x 5.9 cm x 6.0 cm. Normal echogenicity with no hydronephrosis or mass. Left kidney: 11.1 cm x 6.3 cm x 6.5 cm. Normal echogenicity with no hydronephrosis or mass. Aorta: Normal. Urinary Bladder: Minimally distended. No adjacent free fluid. US/US renal BI* [id number] IMPRESSION: Normal renal ultrasound.
[2020-05-15] MEDS: famotidine 20 mg/2 mL INJ IVP ×2 (06:01→17:39)
[2020-05-15 06:29] LABS: Glucose Point of Care 81 mg/dL (70-110)
[2020-05-15 06:31] LABS: Slide Review Slide Review Perform
[2020-05-15] MEDS: heparin 5,000 unit/mL INJ 1 mL 5000 UNIT SUBCUT ×2 (06:33→18:17)
[2020-05-15 08:11] LABS: Glucose Point of Care 56 mg/dL (70-110)
[2020-05-15 09:29] LABS: Glucose Point of Care 142 mg/dL (70-110)
[2020-05-15] MEDS: atorvastatin 40 mg Tablet PO (09:30)
[2020-05-15] MEDS: hyDROXYzine 25 mg Capsule 50 MG PO ×2 (09:30→14:30)
[2020-05-15] MEDS: metoprolol tartrate 25 mg Tablet 37.5 MG PO ×2 (09:31→18:16)
[2020-05-15] MEDS: allopurinol 100 mg Tablet PO (09:33)
[2020-05-15] MEDS: montelukast sodium 10 mg Tablet PO (09:33)
[2020-05-15] MEDS: aspirin 81 mg EC Tablet PO (09:33)
[2020-05-15] MEDS: levothyroxine 125 mcg Tablet PO (09:33)
--- NOTE | 2020-05-15 09:55 | PC.CHAP ---
Pastoral Care Encounter/Spiritual Assessment Type of Contact [] Declined supervisor claims visit [] Patient/Family/Request visit [] Outpatient visit [] Follow-up visit [] Physician referral [] Code/Alert [x] Routine visit [] Staff referral [] Actively dying [] Patient sleeping [] Family support [] [] Out of room [] Palliative care [] [] Receiving care in room [] Pre-surgical visit [] Trauma [] Long length of stay [] ICU visit [] Other: Relational/Emotional Strength [x] Patient feels connected with others/family/visitors/staff [] Distress [] Loneliness/isolation [] Abandonment Spirituality of Patient [x] Person of Libby [x] Attends Religion of their Libby [x] Believes in Prayer [x] Reads Bible or Hinduism materials [] There are Spiritual issues to be addressed Shank Scourer Interventions [x] Prayer [x] Active listening [x] Non-anxious presence [x] Spiritual/emotional support [] Crisis/trauma care [x] Spiritual counseling [] Bereavement support [] Provided bereavement packet [] Provided Bible/devotional materials [] Provided toy/stuffed animal, coloring book to patient or family member [] Provided Communion [] Anointing/[place] [] Salvation [x] Completed spiritual assessment [] Other: Impact on Illness or Injury [] Angry [] Fearful [] Anxious [] Often cries [] Exhaustion [] Unable to work [] Unable to attend cheondoism [] Unable to walk/stand [] Unable to read [] Unable to drive [] Unable to eat/drink [] Unable to sleep [] Unable to be with family [] Patient intubated [x] Other: Summary Patient attends [employer] and studies daily devotionals from Bruce Delgado. Time spent with patient 10 minutes
[2020-05-15 11:07] LABS: Glucose Point of Care 101 mg/dL (70-110)
--- NOTE | 2020-05-15 11:55 | PM.PN ---
Subjective Subjective: Interval history: Continues to feel weak, lethargic, recurrent hypoglycemia this morning. CT with diffuse lympadenopathy. Medications: Reviewed: Yes Vitals/I&O/Wt Last Vital Signs Temp 97.9 F 05/15/20 10:38 Pulse 71 05/15/20 10:38 Resp 19 H 05/15/20 10:38 BP 123/58 05/15/20 10:38 Pulse Ox 91 05/15/20 10:38 05/14/20 05/15/20 05/15/20 22:59 06:59 14:59 Intake Total 300 / 300 480 / 480 Balance 300 / 300 480 / 480 Weight last 48 hrs Weight 72.575 kg Weight 72.575 kg Physical Exam Narrative: EXAM NARRATIVE: GEN: Awake, alert and oriented, no acute distress CVS: S1S2 N RS: CTA B/L Abd: Soft, nt/nd , bs+ INFRASTRUCTURE TECHNICIAN: no focal neuro deficits Data : 05/15/20 03:10 05/15/20 03:10 Micro: Microbiology 05/14/20 19:30 Blood Culture - Preliminary Blood SPECIMEN COLLECTED 05/14/20 18:12 Blood Culture - Preliminary Blood SPECIMEN COLLECTED A&P Assessment and plan (1) CKD (chronic kidney disease): Status: Acute (2) PEOPLES (dyspnea on exertion): Status: Acute (3) Acute kidney injury: Status: Acute (4) CHF (congestive heart failure): Status: Acute (5) Hx of CABG: Status: Acute (6) Diabetes: Status: Acute (7) Insulin pump in place: Status: Acute (8) Hypertension: Status: Acute Additional A&P Information 79-year-old gentleman past medical history of CAD status post CABG and multiple stenting with history of CHF unknown type who follows up with a stock analyst in [place] for history of CKD comes in today because of worsening weakness and shortness of breath. # Acute on chronic kidney disease: Baseline creatinine seems to be around 1.7. Currently at 6.8. Start iv hydration with NS Hyperkalemia improved No evidence of obstruction on CT, however noted to have diffuse lymphadenopathy which together with high WBC with monocytosis may represnt lymphoma. Patient states he wants to be palliative care and would like to transition to hospice, however still would like to know if it is malignancy. Even if malignancy is found, he is refusing any further chemo or radiation rx. 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 To complete w/up, will obtain axillary lymph node biopsy via IR. Add AFB smears from specimen to r/o infectious etiology. Other infectious w/up to incluse histoplasma ag, HIV serology and quantiferon screen. Refused Ann placement Medical reconciliation done for nephrotoxic drugs. Refused HD even if indicated # generalized lymphadenopathy, which may represnt malignancy IR biopsy from axillary lymph node with pathology # For possible cardiorenal syndrome: Prior [facility]ac records obtained [facility]. LAst known EF from 2012 at 65%, no diastolic dysfunction. Echo here remains pending D/c diuretics, start hydration # hypoglycemia: likely 2/2 increased insulin half life, discontinued insulin pump. strat low dose slidings olive insulin for leanne 1 DM # History of CAD: Continue with home dose of aspirin, statins. Continue home dose of metoprolol. Patient is chest pain-free for now. No stress test as goals are hospice #Hypertension: Goal blood pressure 140/90 mmHg. Continue with home dose of metoprolol. # hypothyroidsim: Incrased levothyroxine in view of high TSH and low t4 DNR/DNI. Patient states he would just want to be comfortable he does not want any heroic measures like chest compressions for ventilator. Renal nondialysis diet. Heparin 5000 every 12. Attestations Medical Necessity Statement*: DEMETRIUS, new lympahdenopathy of unclear cause Coding Level of Care Code Acute Translator/Interpreter for [facility] Fwd Diagnoses CKD (chronic kidney disease) N18.9 PEOPLES (dyspnea on exertion) R06.00 Acute kidney injury N17.9 CHF (congestive heart failure) I50.9 Hx of CABG Z95.1 Diabetes E11.[address] Z96.41 Hypertension I10
[2020-05-15 12:41] LABS: Glucose Point of Care 69 mg/dL (70-110)
[2020-05-15 12:41] LABS: Glucose Point of Care 54 mg/dL (70-110)
[2020-05-15 13:07] LABS: Glucose Point of Care 76 mg/dL (70-110)
--- NOTE | 2020-05-15 13:08 | PC.NURSE ---
Physician Notification- Hypoglycemia Physician notified of repetitive low blood sugars even after PO intervention. Physician gave verbal order for nurse to turn off and remove patient's home insulin pump. Nurse to recheck blood glucose. If glucose is still low, physician instructed nurse to give D50 even though patient is alert. Insulin pump removed. Blood glucose reassessed. Blood glucose now 76. Dr. Odom notified. Physician instructed nurse to hold off on D50 and reassess blood glucose in an hour.
--- NOTE | 2020-05-15 13:22 | US_ITS ---
WS: [id number] ULTRASOUND SOFT TISSUES axilla. HISTORY: axillary lymphadenopathy COMPARISON: CT 05/14/2020. TECHNIQUE: 2-D and color Doppler imaging is submitted. Enlarged bilateral axillary lymphadenopathy. These lymph nodes correspond to the findings on the rece nt CT. There is asymmetric cortical thickening and displacement of the central hilum bilaterally. The largest lymph node on the LEFT is 4.0 cm. This would be readily accessible for biopsy. US/US soft tissue/extremity [id number] IMPRESSION: Bilateral axillary lymphadenopathy. These lymph nodes are accessible for biopsy .
[2020-05-15 14:01] LABS: Add Urine Microscopic? YES
[2020-05-15 14:03] LABS: Bacteria Urine TRACE; Mucus Urine TRACE; Squamous Epithelial Cell Urine 0-4 (0-5)
[2020-05-15 14:05] LABS: Add Urine Culture? No
[2020-05-15] MEDS: sodium chloride 0.9% 1,000 ML 75 ML IV (14:26)
[2020-05-15 14:59] LABS: Glucose Point of Care 97 mg/dL (70-110)
--- NOTE | 2020-05-15 15:14 | PC.NURSE ---
Report called to MARIO ALBERTO Isabel on med surg. Nurse verbalized understanding of information and did not have any further questions.
[2020-05-15] MEDS: morphine 4 mg/mL SDV 1 mL 2 MG IVP (15:21)
--- NOTE | 2020-05-15 15:29 | PC.NURSE ---
Physician notification Patient reports ABD pain as an 8/10. Patient states that it is the same type of pain that they gave him morphine for yesterday. Dr. Odom ordered patient to receive 2 mg morphine q4h prn. Physician also instructed nurse to bladder scan patient. Physician notified that patient had 78 ml in bladder. No new orders at this time.
[2020-05-15 15:34] LABS: Uric Acid 6.7 mg/dL (3.4-7.0)
[2020-05-15 16:56] LABS: Glucose Point of Care 84 mg/dL (70-110)
[2020-05-15 21:33] LABS: Glucose Point of Care 228 mg/dL (70-110)
[2020-05-16] VITALS: BP 126/74; PULSE 69; RESP 18; TEMP 36.6; O2SAT 94
[2020-05-16] MEDS: sodium chloride 0.9% 1,000 ML 75 ML IV (03:02)
[2020-05-16 04:00] VITALS: BP 134/76; PULSE 73; RESP 18; TEMP 36.6; O2SAT 95
[2020-05-16 04:28] LABS: Glucose Point of Care 130 mg/dL (70-110)
[2020-05-16 05:33] LABS: Alanine Aminotransferase 22 U/L (0-41); Albumin Level 2.9 g/dL (3.5-5.2); Alkaline Phosphatase 172 IU/L (40-130); Anion Gap 19.8 (5-19); Aspartate Amino Transferase 28 U/L (0-40); Calcium 8.7 mg/dL (8.5-10.5); Carbon Dioxide 22 mmol/L (22-29); Chloride 103 mmol/L (98-107); Globulin 2.4 g/dL (1.3-4.6); Glucose 141 mg/dL (65-115); Osmolality Calculated 291 mOsm/kg (285-295); Potassium 5.8 mmol/L (3.5-5.1); Sodium 139 mmol/L (136-145); Total Bilirubin 0.4 mg/dL (0.15-1.2); Total Protein 5.3 g/dL (6.6-8.7)
[2020-05-16 05:40] LABS: Blood Urea Nitrogen 93 mg/dL (8-23)
[2020-05-16 06:38] LABS: HIV 1 & 2 Antibody Non-Reactive (Non-Reactiv); HIV 1 & 2 Antigen Non-Reactive (Non-Reactiv)
[2020-05-16] MEDS: heparin 5,000 unit/mL INJ 1 mL 5000 UNIT SUBCUT (06:42)
[2020-05-16 07:33] VITALS: BP 150/62; PULSE 74; RESP 17; TEMP 36.5; O2SAT 94
[2020-05-16 07:38] LABS: Glucose Point of Care 163 mg/dL (70-110)
[2020-05-16] MEDS: allopurinol 100 mg Tablet PO (09:18)
[2020-05-16] MEDS: metoprolol tartrate 25 mg Tablet 37.5 MG PO (09:18)
[2020-05-16] MEDS: levothyroxine 125 mcg Tablet PO (09:19)
[2020-05-16] MEDS: montelukast sodium 10 mg Tablet PO (09:19)
[2020-05-16] MEDS: hyDROXYzine 25 mg Capsule 50 MG PO (09:19)
[2020-05-16] MEDS: atorvastatin 40 mg Tablet PO (09:19)
[2020-05-16] MEDS: aspirin 81 mg EC Tablet PO (09:19)
[2020-05-16 09:20] LABS: Glucose Point of Care 231 mg/dL (70-110)
[2020-05-16] MEDS: famotidine 20 mg/2 mL INJ IVP (10:06)
[2020-05-16 11:07] LABS: Glucose Point of Care 210 mg/dL (70-110)
[2020-05-16 11:19] VITALS: BP 130/57; PULSE 63; RESP 18; TEMP 36.5; O2SAT 94
--- NOTE | 2020-05-16 13:23 | US_ITS ---
NOTE: Report was unsigned for reason: Order was edited. Original Signature date and time was: 05/16/20 0926 WS: [id number] ULTRASOUND GUIDED BIOPSY LEFT AXILLARY LYMPH NODE. HISTORY: Bilateral axillary lymphadenopathy. Procedure, risks, and complications are explained to the patient. Consent was obtained. Skin is cleansed with ChloraPrep and anesthetized with 1% buffered lidocaine. Numerous core biopsies are performed of an abnormal lymph node in the LEFT axilla. Core biopsies are performed with 20-gauge automatic Achieve needle. Specimen is placed in both formalin and saline as requested by pathology. There is a small amount of bleeding during the procedure which stopped with compression. No significant bleeding. [facility] [id number] IMPRESSION: Uncomplicated core biopsy of LEFT axillary lymphadenopathy. Specimen placed in formalin and saline as requested by pathology. Final pathology results are pend ing.
[2020-05-16] MEDS: HYDROcodone-acetaminophen 5-325 mg Tablet 1 TAB PO (14:57)
--- NOTE | 2020-05-16 16:05 | PM.DCS ---
Discharge Providers Date of Admission: 05/14/20 14:41 Date of Discharge: May 16, 2020 Attending Provider at Admission: Karsten Wagner MD Attending Provider at Discharge: Chasidy Odom MD Diagnoses at Discharge Discharge Diagnosis (1) Acute renal failure: Status: Acute Qualifiers: Acute renal failure type: unspecified Qualified Code(s): N17.9 - Acute kidney failure, unspecified (2) CKD (chronic kidney disease): Status: Acute Qualifiers: Chronic kidney disease stage: unspecified stage Qualified Code(s): N18.9 - Chronic kidney disease, unspecified (3) PEOPLES (dyspnea on exertion): Status: Acute (4) Acute kidney injury: Status: Acute (5) Hx of CABG: Status: Acute (6) Diabetes: Status: Acute Qualifiers: Diabetes mellitus type: type 1 Diabetes mellitus complication status: with other specified complication Qualified Code(s): E10.69 - Type 1 diabetes mellitus with other specified complication (7) Insulin pump in place: Status: Acute (8) Hypertension: Status: Acute Qualifiers: Hypertension type: essential hypertension Qualified Code(s): I10 - Essential (primary) hypertension (9) Generalized lymphadenopathy: Status: Acute (10) Hyperkalemia: Status: Acute Reason for Visit Reason for Visit: flluid build up Hospital Course Discharge Summary: Ricky Pérez is a 79 year old male with past medical history of CAD status post CABG and PCI with last stent in 2006, type 1 diabetes mellitus on insulin pump, hypertension CKD with baseline creatinine around 1.7 presents to the ER today with worsening shortness of breath for last 7 to 8 months. At present he is not able to walk even 3 steps without getting out of breath. He is not really sure about orthopnea or PND. At baseline he sleeps in a recliner with his head up because of dizziness because of some middle ear problems. The symptoms associated with increasing swelling in his lower limbs which is been getting worse for last 1 week. He does complain of decreased urine output for last 1 week. He had received some primary care as an outpatient and was started on lasix and Bumex. His blood work in the ER showed a white count of 18,000, hemoglobin of 12.2, neutrophil left shift of 8.79, potassium of 5.3, BUN of 80, creatinine of 6.3. He underwent CT abdomen to evalute for any obstruction. No evidence of obstruction on CT, however noted to have diffuse lymphadenopathy which together with high WBC with monocytosis may represnt lymphoma. He underwent an axillary lymph node biopsy today to establish diagnosis. Of note, an extensive discussion with the patient and significance of these findings has in fact opted to go palliative care with hospice. The discussion specifically included the fact that if malignancy is found, next step would be to refer him to oncology and possible chemotherapy. 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 Given his rising creatinine to 7.7, hyperkalemia, metabolic acidosis, lethargy and eventually anuria, he was recommended hemodialysis, however he has refused this intervention as well, understanding that lack of dialysis will lead to eventual demise. States that he has made peace with the fact that he has had a good life and now it's time to go . Other hospital events included hypoglycemia for which his insulin pump was removed. His family including son Michael, brother Jasmyne and sister in law Michael were updated and made aware of his wishes. Home hospice was attempted to be arranged, however patient does not have caregivers that can stay with him and is therefore being discharged to SNF with hospice/comfort care. Physical Exam Narrative: EXAM NARRATIVE: GEN: Awake, alert and oriented, no acute distress CVS: S1S2 N RS: CTA B/L Abd: Soft, nt/nd , bs+ SOFTWARE COMPUTER SPECIALIST: no focal neuro deficits Discharge Data Data Completed and Pending: Completed Studies During Hospitalization Category Date Time Status CT chest abd pel wo con Urgent Cat Scan 05/14/20 16:07 Completed XR chest 1V sena ble [id number] Stat Exams 05/14/20 13:26 Completed CV echo complete* [id number] Routine Ultrasound 05/15/20 05:00 Completed US biopsy [id number] R outine Ultrasound 05/16/20 13:23 Completed US renal BI* [id number] Routine Ultrasound 05/15/20 05:00 Completed US soft tissue/ex tremity [id number] Stat Ultrasound 05/15/20 13:22 Completed Pending at discharge Category Date Time Status Blood Culture Sta t Lab 05/14/20 19:30 Results Histoplasma Quant itative AG Routine Lab 05/15/20 13:24 Ordered Miscellaneous Selene t Routine Lab 05/16/20 11:59 Ordered [id number] ld Plus Routine Lab 05/16/20 09:42 Ordered Pathology: Surgic al [PTH] Routine Pth 05/16/20 09:09 Received Labs from last 24 hours 05/16/20 05/16/20 05/16/20 11:04 09:17 07:21 Sodium Potassium Chloride Carbon Dioxide Anion Gap BUN Creatinine Glucose POC Glucose 210 231 163 Calculated Osmolal ity Calcium Total Bilirubin AST ALT Alkaline Phosphata se Total Protein Albumin Globulin HIV 1&2 Ab & HIV 1 Ag HIV 1&2 Antibody 05/16/20 05/16/20 05/16/20 04:37 04:37 04:24 Sodium 139 Potassium 5.8 H Chloride 103 Carbon Dioxide 22 Anion Gap 19.8 H BUN 93 H* Creatinine 7.7 H* Glucose 141 H POC Glucose 130 Calculated Osmolal ity 291 Calcium 8.7 Total Bilirubin 0.4 AST 28 ALT 22 Alkaline Phosphata se 172 H Total Protein 5.3 L Albumin 2.9 L Globulin 2.4 HIV 1&2 Ab & HIV 1 Ag Non-reactive HIV 1&2 Antibody Non-reactive 05/15/20 05/15/20 21:18 16:48 Sodium Potassium Chloride Carbon Dioxide Anion Gap BUN Creatinine Glucose POC Glucose 228 84 Calculated Osmolal ity Calcium Total Bilirubin AST ALT Alkaline Phosphata se Total Protein Albumin Globulin HIV 1&2 Ab & HIV 1 Ag HIV 1&2 Antibody Vitals: Last Vital Signs Temp 97.7 F 05/16/20 11:19 Pulse 63 05/16/20 11:19 Resp 18 05/16/20 11:19 BP 130/57 05/16/20 11:19 Pulse Ox 94 05/16/20 11:19 Discharge Plan Discharge Patient Disposition: Hospice - Medical Facility Condition: Stable Prescriptions: New morphine concentrate 100 mg/5 mL (20 mg/mL) Solution 5 mg sublingual Q2H PRN (Reason: Air Hunger) 14 Days RF: 0 hydrocodone-acetaminophen 5-325 mg Tablet 1 tab PO Q4H PRN (Reason: Moderate Pain) 14 Days Qty: 60 RF: 0 lorazepam 0.5 mg Tablet 0.25 mg PO Q4H PRN (Reason: Anxiety) 14 Days RF: 0 ondansetron HCl (PF) 4 mg/2 mL Solution 4 mg IVP Q8H PRN (Reason: vomiting, or N/V if npo) Qty: 0 RF: 0 Discontinued aspirin 81 mg tablet,delayed release (DR/EC) 81 mg PO DAILY RF: 0 levothyroxine 75 mcg capsule 75 mcg PO DAILY RF: 0 atorvastatin 80 mg tablet 40 mg PO DAILY RF: 0 insulin aspart U-100 [Novolog U-100 Insulin aspart] 100 unit/mL solution See Rx Instructions .ROUTE .COMPLEX RF: 0 metoprolol tartrate 25 mg tablet 37.5 mg PO BID RF: 0 nitroglycerin [Nitrostat] 0.4 mg tablet, sublingual 0.4 mg SUBLINGUAL Q5M PRN (Reason: Chest Pain) RF: 0 montelukast 10 mg tablet 10 mg PO DAILY RF: 0 hydroxyzine HCl 50 mg tablet 50 mg PO TID RF: 0 furosemide 20 mg tablet 60 mg PO BID 30 Days Qty: 180 RF: 8 bumetanide 1 mg Tablet 0.5 mg PO BID RF: 0 Discharge Orders: Discharge Order (Routine); Ordered 05/16/20 Ordered By: Chasidy Odom Referrals: [facility] [Outside] ([facility] has been notified of discharge.) Discharge Diet: Usual diet Discharge Activity: Resume usual activity Patient Instructions: Hydrocodone/Acetaminophen (By mouth), Lorazepam (By mouth), Morphine, Rapid Release (By mouth), Ondansetron (By mouth), Chronic Kidney Disease (DC) Discharge Attestations Time Spent in Discharge Care*: greater than 30 min Specific Discharge Activities: Specific discharge activities: educating and/or supporting family/caregiver, discussing with casework supervisor/social workers/dc planners and documenting/other paperwork Quality Metrics Clinical Quality Measures During this hospital stay, did patient experience: None Coding Level of Care Code Acute Electrical Worker for g Fwd Diagnoses Acute renal failure N17.9 Acute renal failure type: unspecified CKD (chronic kidney disease) N18.9 Chronic kidney disease stage: unspecified stage PEOPLES (dyspnea on exertion) R06.00 Acute kidney injury N17.9 Hx of CABG Z95.1 Diabetes E10.69 Diabetes mellitus type: type 1 Diabetes mellitus complication status: with other specified complication Insulin pump in place Z96.41 Hypertension I10 Hypertension type: essential hypertension Generalized lymphadenopathy R59.1 Hyperkalemia E87.5
[2020-05-16 16:55] LABS: Glucose Point of Care 144 mg/dL (70-110)
[2020-05-16 18:26] VITALS: BP 130/57; PULSE 63; RESP 18; TEMP 36.5; O2SAT 94
--- NOTE | 2020-05-17 02:03 | PC.NURSE ---
Pt discharged at 1929, IV removed, tip intact, left by wheelchair via ready transport with family, all personal belongings with patient
[2020-05-19 13:00] LABS: Quantiferon Mitogen 7.15 IU/mL; Quantiferon Nil 0.01 IU/mL; Quantiferon TB Gold NEGATIVE (NEGATIVE)
[2020-05-20 08:31] LABS: Absolute Segmented Neutrophil 7.8 10/cmm (1.6-7.1); Band Neutrophils Absolute 0.4 10^3/cmm (0.0-1.2); Lymphocytes 40 %; Segmented Neutrophils 41 %; Total Cells Counted 100 (0-100)
[2020-05-20 08:32] LABS: Absolute Eosinophils 1.3 10^3/cmm (0.0-0.7); Eosinophils 7 %; Monocytes Absolute 1.9 10^3/cmm (0.1-0.6)
[2020-05-20 08:33] LABS: Absolute Neutrophil 8.2 10^3/cmm (1.4-6.5); Platelet Estimate Normal (Normal)
[2020-06-27 14:49] LABS: Miscellaneous Test See Scanned Lab Rpt
== END 2020-05-16 19:30 | disposition hospice, inpatient (51) | DRG 988 ==
LOC: ER 14:54 → MEDSURG 15:33 → CSU 16:54 → MEDSURG 05-15 15:16
PROVIDERS: Family Medicine; Admitting Provider Student in an Organized Health Care Education/Training Program; Visit Provider Student in an Organized Health Care Education/Training Program
DX: N17.9 Acute kidney failure, unspecified (principal); I13.0 Hypertensive heart and chronic kidney disease with heart failure and stage 1 through stage 4 chronic kidney disease, or unspecified chronic kidney disease; I25.10 Atherosclerotic heart disease of native coronary artery without angina pectoris; Z95.5 Presence of coronary angioplasty implant and graft; Z95.1 Presence of aortocoronary bypass graft; E10.22 Type 1 diabetes mellitus with diabetic chronic kidney disease; N18.9 Chronic kidney disease, unspecified; I50.9 Heart failure, unspecified; Z96.41 Presence of insulin pump (external) (internal); Z87.891 Personal history of nicotine dependence; E87.5 Hyperkalemia; Z66 Do not resuscitate; R59.0 Localized enlarged lymph nodes; Z85.819 Personal history of malignant neoplasm of unspecified site of lip, oral cavity, and pharynx; Z92.3 Personal history of irradiation; Z79.891 Long term (current) use of opiate analgesic; E10.649 Type 1 diabetes mellitus with hypoglycemia without coma
CPT/HCPCS: 12345; 36415; 36416; 38505; 71045; 71250; 74176; 76770; 76882; 76942; 80053; 80061; 80500; 81001; 81003; 82310; 82436; 82570; 82607; 82962; 83036; 83540; 83550; 83605; 83735; 83880; 83970; 84100; 84133; 84145; 84300; 84439; 84443; 84481; 84484; 84550; 85007; 85025; 85610; 86480; 87040; 87641; 87806; 88271; 88275; 88305; 93005; 93306; 94664; 96372; 96375; 99282; J1644; J1815; J2270; J2405; J3490; J7030